=== PATIENT | female | born 1985 | race Caucasian/White ===

== ENCOUNTER 2017-11-06 11:23 | Outpatient (CLI) | payer OTHER, SELFPAY | END 2017-11-06 12:46 | disposition home or self-care (01) | LOC: LABOR 12:21 → OB 11-07 09:25 | PROVIDERS: PCP Family Medicine; Visit Provider Family Medicine | DX: Z03.71 Encounter for suspected problem with amniotic cavity and membrane ruled out (principal); Z3A.36 36 weeks gestation of pregnancy | CPT/HCPCS: 59025; 84112; 87081; G0378; G0379 ==

== ENCOUNTER → 2017-11-06 13:13 | Outpatient (REF) | payer OTHER, SELFPAY | LOC: LAB 13:13 | PROVIDERS: PCP Family Medicine; Visit Provider Family Medicine | DX: Z34.00 Encounter for supervision of normal first pregnancy, unspecified trimester (principal) | CPT/HCPCS: 87081 ==

== ENCOUNTER → 2017-11-26 08:10 | Outpatient (CLI) | payer OTHER, SELFPAY ==
--- NOTE | 2017-11-26 | DI.US.S_ITS ---
PROCEDURE: US OB LIMITED INDICATIONS: Small for gestational age OUTSIDE/PRIOR DATING DATA: Last menstrual period (LMP): Unknown. LMP-based estimated date of delivery (YONI): Unknown. First dating scan (date and location): 04/26/17. Estimated date of delivery (YONI) from first dating scan: 11/30/17. TECHNIQUE: Real-time scanning was performed of the fetus, with image documentation. COMPARISON: [facility], OB COMPLETE 14WKS OR MORE, 07/19/2017, 16:03. [facility], OB COMPLETE LESS THAN 14 WKS, 05/29/2017, 9:32. [facility], OB COMPLETE LESS THAN 14 WKS, 04/26/2017, 9:52. FINDINGS: A single living intrauterine gestation is present. Presentation: Cephalic Placenta: Placental position is anterior, without previa. Amniotic fluid index: 8.4 cm heart rate: 125 beats per minute. Maternal cervical canal: Not definitely seen related to head positioning Biometry: BPD: 9.2 cm, 37 weeks 3 days. HC: 33.6 cm, 30 weeks 3 days. AC.: 33.4 cm, 37 weeks 2 days. FL: 7.3 cm, 37 weeks 1 day Composite gestational age today: 37 weeks 4 days. Estimated gestational weight: 3200 g (24th percentile). IMPRESSION: 1. Single live intrauterine at 37 weeks 4 days (current YONI of 12/13/17) is discordant with the clinical dates by nearly 2 weeks. Please correlate clinically for possible intrauterine growth restriction. 2. Estimated gestational weight is within the 24th percentile. . Dictated by: Joe Arboleda M.D. on 11/26/2017 at 9:00 Approved by: Joe Arboleda M.D. on 11/26/2017 at 9:03
== END ==
PROVIDERS: Family Provider Family Medicine; PCP Family Medicine; Visit Provider Family Medicine
DX: O36.5930 Maternal care for other known or suspected poor fetal growth, third trimester, not applicable or unspecified (principal); Z3A.37 37 weeks gestation of pregnancy
CPT/HCPCS: 76815

== ENCOUNTER 2017-12-04 17:37 | Inpatient (IN) | payer OTHER, SELFPAY ==
[2017-12-04] MEDS: miSOPROStol 25 MCG TABLET VAG ×2 (18:20→22:16)
[2017-12-05] MEDS: OXYTOCIN PREMIX 30 UNIT/500 ML PLAST..BAG IV (08:20)
[2017-12-05] MEDS: LACTATED RINGERS 1,000 ML 100 ML IV ×2 (08:20→16:08)
[2017-12-05 08:52] LABS: Add Manual Diff / Slide Review NO; Basophils Percent Auto 0.2 % (0-2); Eosinophils Percent Auto 1.1 % (2-4); Hematocrit 37.1 % (36-46); Hemoglobin 13.2 g/dL (12.0-16.0); Mean Corpuscular HGB Conc 35.6 % (30-36); Mean Corpuscular Hemoglobin 32.6 PG (26-34); Mean Corpuscular Volume 91.4 fL (80-100); Monocytes Percent Auto 9.1 % (3-14); Neutrophils Absolute Auto 7700 /uL (3000-5900); Neutrophils Percent Auto 72.6 % (50-75); Platelet Count 241 X10^3/uL (150-400); Red Blood Cell Count 4.06 X10^6/uL (4.0-5.2); Red Cell Distribution Width 13.4 % (11.6-14.8); White Blood Cell Count 10.6 X10^3/uL (4.5-11.0)
[2017-12-05 10:32] VITALS: BP 117/76
--- NOTE | 2017-12-05 17:38 | PM.OBPNLAB ---
Date/Time Date Patient Seen: 12/05/17 Time Patient Seen: 13:37 Pain Control Pain control: tolerating well Pelvic Exam Dilation (cm): 2 Effacement (%): 75 station: -1 Amniotic membrane status: Bulging Comments: AROM, clear Contractions Date/Time contractions began: 800am Contractions on admission: irregular Monitor mode: External Pitocin rate (mU/min): 16 Contraction frequency (min): 2 Contraction pattern: Regular Contraction phase: Resting Contraction intensity: Moderate Status status: Category l Heart Rate Baseline: 140 Monitor Accelerations: Present Monitor Decelerations: Absent Monitor Variability: Moderate Assessment and Plan Assessment: induction ongoing Plan: continuous present management Comments: 32-year-old at 40 and 5 7 weeks estimated gestational age here for induction of labor. She received 2 Cytotec last night and now is having good response to Pitocin. She changed from 1 cm to 2 cm from 50% face to 75% effaced and baby has come down from being high to now been negative to 10-1. Reassuring heart tones with category 1 tracing She is Rh negative status post RhoGAM She is GBS negative A rum performed after risks benefits discussed with patient. Clear fluid Epidural if she requests
--- NOTE | 2017-12-05 21:33 | PM.OBPRVD ---
Events: Labor Induction Delivery date: 12/05/17 Intrapartal events: None Induction method: per pitocin protocol Delivery augmentation: rupture of membranes and pitocin Delivery monitor: external FHT Route of delivery: Laceration description: None Anesthesia type: Epidural Narrative: Identifying data meningiomas and is a 32-year-old at 40 and 5 7 weeks estimated gestational age with uncomplicated other than maternal smoking who presents to Labor and delivery for induction of labor due to postdates gestation a previous history of benign 0.5 lb baby. She was given Cytotec x2 on the night prior to delivery and Pitocin was started at approximately 8:00 a.m. on the day of delivery. Stage I: 6 hours 20 min Pitocin was started approximately 8:30 a.m.. There was some cervical change from the prior night. Artificial rupture of membranes was done at 1:49 p.m. which was 7 hr and 7 min prior to delivery. There was clear fluid. Cervix was 2 cm 75% effaced -1 to -2 station. Patient had increasing uterine contractions. Pitocin was max at 16 milliunits. External feel heart monitor and tocometer use. heart tones baseline in the 135-140 range with accelerations and moderate variability but no deceleration making this a category 1 tracing. Contractions were every 2-3 minutes with some coupling. After rupture membranes coupling resolved and MRSA more active labor pattern. Patient requested epidural and this was placed at 4:30 p.m. I gave excellent analgesia. Pitocin was stopped prior to epidural and then restarted after epidural. The patient was noted to be complete at 8:29 p.m.. Stage II lasted 19 min Patient started pushing had effective pushing was able to bring the baby down baby was in RO a presentation. The mom was able to effectively push and the head was delivered without difficulty there was nuchal cord x2 which was easily reduced on the perineum and anterior shoulder delivered then posterior shoulders were delivered and be put on mom's chest. Baby was vigorous at delivery. Apgars were 9 at 1 min and 9 at 5 min. Stage III lasted 2 min The test was run in its since the baby was delivered. 10 mm use of Pitocin was given after delivery of the placenta. 300 cc of blood loss was estimated. Placenta was intact mildly calcified with a three-vessel cord. There is a lateral insertion. There was no perineal or vaginal or cervical lacerations. There were scattered marked periurethral that were not repaired because they were not bleeding and they were not deep. At the time of this dictation both mom and baby are doing excellent. Plan for aftercare: Status post term delivery, normal spontaneous vaginal delivery Routine care Motrin, Percocet as needed pain CBC in a.m.
--- NOTE | 2017-12-05 21:43 | PM.OBHP.1 ---
OB HPI History of Present Illness Chief complaint: EVAL OF LABOR Narrative: Felicita Barrera is a 32 year old female T2 P1 at 40 and 5 7 weeks estimated gestational age here for induction of labor due to postdates gestation. has been uncomplicated other than maternal smoking and 1st and 2nd trimester but she quit in 3rd trimester. GBS negative, Rh negative status post RhoGAM and Tdap and flu shot. Her past medical history is remarkable for anxiety. She takes no medications for this Past Ob history is remarkable for normal spontaneous vaginal delivery of a 9 lb 5 oz male, healthy, no complications, epidural, [place]. Induction at 41-,1/2 weeks care was begun early on with 35 lb weight gain. Good blood pressures. No complications. Serology negative. testing negative Evaluation Evaluation Laboratory results: Laboratory Tests 12/05/17 12/05/17 08:02 08:02 WBC 10.6 RBC 4.06 Hgb 13.2 Hct 37.1 MCV 91.4 MCH 32.6 MCHC 35.6 RDW 13.4 Plt Count 241 Neut % (Auto) 72.6 Lymph % (Auto) 17.0 L [place] % (Auto) 9.1 Eos % (Auto) 1.1 L Baso % (Auto) 0.2 Neut # (Auto) 7700 H Blood Type O Negative Antibody Screen Negative PFSH Social History Smoking Status: Former smoker Meds Home Medications Medication Instructions Recorded Confirmed Type PNV cmb#95-ferrous fumarate-FA 1 tab PO DAILY 12/05/17 12/05/17 History [] Allergies Allergy/AdvReac Type Severity Reaction Status Date / Time No Known Drug Allergies Allergy Verified 12/05/17 10:31 Review of Systems Review of Systems All systems reviewed & are unremarkable except as noted in HPI and below Exam Narrative Exam Narrative: Afebrile vital signs are stable HEENT: Unremarkable Neck: Supple without masses or adenopathy Chest: Clear to auscultation without wheezes rhonchi or crackles Cor: Regular rate and rhythm without murmur Abdomen: Gravid, vertex, estimated weight 7 lb Extremities no edema pulses intact, DTRs are intact Objective Labs Result Diagrams: 12/05/17 08:02 Labs: Laboratory Results - last 24 hr 12/05/17 12/05/17 08:02 08:02 WBC 10.6 RBC 4.06 Hgb 13.2 Hct 37.1 MCV 91.4 MCH 32.6 MCHC 35.6 RDW 13.4 Plt Count 241 Neut % (Auto) 72.6 Lymph % (Auto) 17.0 L [place] % (Auto) 9.1 Eos % (Auto) 1.1 L Baso % (Auto) 0.2 Neut # (Auto) 7700 H Blood Type O Negative Antibody Screen Negative Assessment and Plan Plan: Plan: 32-year-old 1 at 40 and 5 7 weeks estimated gestational age here for post-dates induction Risks benefits discussed with patient and consent signed. cytotec x2 and plan for Pitocin in the a.m. GBS is negative Rh negative, status post program, status post Tdap
--- NOTE | 2017-12-05 21:48 | P.HPOB_ITS ---
OB HPI History of Present Illness Chief complaint: EVAL OF LABOR Narrative: Felicita Barrera is a 32 year old female T2 P1 at 40 and 5 7 weeks estimated gestational age here for induction of labor due to postdates gestation. has been uncomplicated other than maternal smoking and 1st and 2nd trimester but she quit in 3rd trimester. GBS negative, Rh negative status post RhoGAM and Tdap and flu shot. Her past medical history is remarkable for anxiety. She takes no medications for this Past Ob history is remarkable for normal spontaneous vaginal delivery of a 9 lb 5 oz male, healthy, no complications, epidural, [place]. Induction at 41-,1/2 weeks care was begun early on with 35 lb weight gain. Good blood pressures. No complications. Serology negative. testing negative Evaluation Evaluation Laboratory results: Laboratory Tests 12/05/17 12/05/17 08:02 08:02 WBC 10.6 RBC 4.06 Hgb 13.2 Hct 37.1 MCV 91.4 MCH 32.6 MCHC 35.6 RDW 13.4 Plt Count 241 Neut % (Auto) 72.6 Lymph % (Auto) 17.0 L [place] % (Auto) 9.1 Eos % (Auto) 1.1 L Baso % (Auto) 0.2 Neut # (Auto) 7700 H Blood Type O Negative Antibody Screen Negative PFSH Social History Smoking Status: Former smoker Meds Home Medications Medication Instructions Recorded Confirmed Type PNV cmb#95-ferrous fumarate-FA 1 tab PO DAILY 12/05/17 12/05/17 History [] Allergies Allergy/AdvReac Type Severity Reaction Status Date / Time No Known Drug Allergies Allergy Verified 12/05/17 10:31 Review of Systems Review of Systems All systems reviewed & are unremarkable except as noted in HPI and below Exam Narrative Exam Narrative: Afebrile vital signs are stable HEENT: Unremarkable Neck: Supple without masses or adenopathy Chest: Clear to auscultation without wheezes rhonchi or crackles Cor: Regular rate and rhythm without murmur Abdomen: Gravid, vertex, estimated weight 7 lb Extremities no edema pulses intact, DTRs are intact Objective Labs Result Diagrams: 12/05/17 08:02 Labs: Laboratory Results - last 24 hr 12/05/17 12/05/17 08:02 08:02 WBC 10.6 RBC 4.06 Hgb 13.2 Hct 37.1 MCV 91.4 MCH 32.6 MCHC 35.6 RDW 13.4 Plt Count 241 Neut % (Auto) 72.6 Lymph % (Auto) 17.0 L [place] % (Auto) 9.1 Eos % (Auto) 1.1 L Baso % (Auto) 0.2 Neut # (Auto) 7700 H Blood Type O Negative Antibody Screen Negative Assessment and Plan Plan: Plan: 32-year-old 1 at 40 and 5 7 weeks estimated gestational age here for post- dates induction Risks benefits discussed with patient and consent signed. cytotec x2 and plan for Pitocin in the a.m. GBS is negative Rh negative, status post program, status post Tdap
[2017-12-06] MEDS: IBUPROFEN 600 MG TABLET PO ×3 (01:14→15:50)
[2017-12-06 06:56] LABS: Add Manual Diff / Slide Review NO; Basophils Percent Auto 0.1 % (0-2); Eosinophils Percent Auto 0.5 % (2-4); Hematocrit 33.4 % (36-46); Hemoglobin 11.7 g/dL (12.0-16.0); Lymphocytes Percent Auto 13.9 % (25-40); Mean Corpuscular HGB Conc 35.2 % (30-36); Mean Corpuscular Hemoglobin 32.3 PG (26-34); Mean Corpuscular Volume 91.7 fL (80-100); Monocytes Percent Auto 10.3 % (3-14); Neutrophils Absolute Auto 10700 /uL (3000-5900); Neutrophils Percent Auto 75.2 % (50-75); Platelet Count 217 X10^3/uL (150-400); Red Blood Cell Count 3.64 X10^6/uL (4.0-5.2); Red Cell Distribution Width 13.2 % (11.6-14.8); White Blood Cell Count 14.2 X10^3/uL (4.5-11.0)
[2017-12-06] MEDS: DERMOPLAST SPRAY 20% 60 ML 1 SPRAY TOP (08:24)
[2017-12-06] MEDS: DOCUSATE 250 MG CAPSULE PO (09:17)
[2017-12-06] MEDS: RHO(D) IMMUNE GLOBULIN 1,500 UNIT SYRINGE 1500 UNIT IM (12:08)
[2017-12-06] MEDS: ACETAMINOPHEN 325 MG TABLET 650 MG PO (12:21)
--- NOTE | 2017-12-06 13:04 | PM.DS.1 ---
History of Present Illness Date Patient Seen: 12/06/17 Time Patient Seen: 13:04 Chief complaint: EVAL OF LABOR Narrative: See history and physical. Presented for induction. Delivered Discharge Providers Date of admission: 12/04/17 17:37 Primary care physician: Pricilla Drake MD Consults: 12/05/17 08:02 Consult to Anesthesiology Urgent Comment: Consulting Provider: Navi Muhammad Reason For Exam: Preoperative evaluation Reason for consultation: Induction of Labor Has provider been notified: Yes 12/05/17 21:30 Consult to Bee Raiser Routine Comment: Discharge provider: Oni Valle MD Summary Discharge Diagnosis: Term intrauterine delivered by vaginal delivery Hospital Course: Patient was admitted after delivery. Transferred to recovery room after 4 hr. Was doing well. Breast-feeding was going well. Feeling well. Minimal bleeding. Pain was well controlled with ibuprofen and Tylenol. Requesting to go home. After 24 hr near she was discharged to home. Stable condition. Status at Discharge Cognitive/behavioral status at discharge: Stable Overall status at discharge: patient is progressing back to baseline Exam Narrative Exam Narrative: Alert female in no acute distress Lungs are clear. Heart regular rate and rhythm. Abdomen is soft positive bowel sounds [place] is firm. Extremities normal. Objective Labs Result Diagrams: 12/06/17 06:15 Labs: Laboratory Results - last 24 hr 12/06/17 12/06/17 06:15 06:15 WBC 14.2 H RBC 3.64 L Hgb 11.7 L Hct 33.4 L MCV 91.7 MCH 32.3 MCHC 35.2 RDW 13.2 Plt Count 217 Neut % (Auto) 75.2 H Lymph % (Auto) 13.9 L [place] % (Auto) 10.3 Eos % (Auto) 0.5 L Baso % (Auto) 0.1 Neut # (Auto) 15646 H Maternal Bleed Negative Discharge Plan Discharge Plan Patient Disposition: Home, Self-Care Discharge Med Rec/Prescriptions Prescriptions: New ibuprofen 600 mg Tablet 600 mg PO Q6HR PRN (Reason: Pain, Mild (1-3)) Qty: 90 RF: 1 docusate sodium 250 mg Capsule 250 mg PO DAILY Qty: 60 RF: 1 Continue PNV cmb#95-ferrous fumarate-FA [] 28 mg iron- 800 mcg Tablet 1 tab PO DAILY RF: 0 Follow up/Referrals: Pricilla Drake MD [Primary Care Provider] - 6 Weeks (six weeks) Provider Discharge Instructions Diet: Diet as Tolerated Activity: as tolerated no intercourse Discharge Data Primary Care Provider: Pricilla Drake Attending Provider: Pricilla Drake Admit Date/Time: 12/04/17 17:37
--- NOTE | 2017-12-06 13:08 | P.DS_ITS ---
History of Present Illness Date Patient Seen: 12/06/17 Time Patient Seen: 13:04 Chief complaint: EVAL OF LABOR Narrative: See history and physical. Presented for induction. Delivered Discharge Providers Date of admission: 12/04/17 17:37 Primary care physician: Pricilla Drake MD Consults: 12/05/17 08:02 Consult to Anesthesiology Urgent Comment: Consulting Provider: Navi Muhammad Reason For Exam: Preoperative evaluation Reason for consultation: Induction of Labor Has provider been notified: Yes 12/05/17 21:30 Consult to Auto Radiator Specialist Routine Comment: Discharge provider: Oni Valle MD Summary Discharge Diagnosis: Term intrauterine delivered by vaginal delivery Hospital Course: Patient was admitted after delivery. Transferred to recovery room after 4 hr. Was doing well. Breast-feeding was going well. Feeling well. Minimal bleeding. Pain was well controlled with ibuprofen and Tylenol. Requesting to go home. After 24 hr near she was discharged to home. Stable condition. Status at Discharge Cognitive/behavioral status at discharge: Stable Overall status at discharge: patient is progressing back to baseline Exam Narrative Exam Narrative: Alert female in no acute distress Lungs are clear. Heart regular rate and rhythm. Abdomen is soft positive bowel sounds [place] is firm. Extremities normal. Objective Labs Result Diagrams: 12/06/17 06:15 Labs: Laboratory Results - last 24 hr 12/06/17 12/06/17 06:15 06:15 WBC 14.2 H RBC 3.64 L Hgb 11.7 L Hct 33.4 L MCV 91.7 MCH 32.3 MCHC 35.2 RDW 13.2 Plt Count 217 Neut % (Auto) 75.2 H Lymph % (Auto) 13.9 L [place] % (Auto) 10.3 Eos % (Auto) 0.5 L Baso % (Auto) 0.1 Neut # (Auto) 14181 H Maternal Bleed Negative Discharge Plan Discharge Plan Patient Disposition: Home, Self-Care Discharge Med Rec/Prescriptions Prescriptions: New ibuprofen 600 mg Tablet 600 mg PO Q6HR PRN (Reason: Pain, Mild (1-3)) Qty: 90 RF: 1 docusate sodium 250 mg Capsule 250 mg PO DAILY Qty: 60 RF: 1 Continue PNV cmb#95-ferrous fumarate-FA [] 28 mg iron- 800 mcg Tablet 1 tab PO DAILY RF: 0 Follow up/Referrals: Pricilla Drake MD [Primary Care Provider] - 6 Weeks (six weeks) Provider Discharge Instructions Diet: Diet as Tolerated Activity: as tolerated no intercourse Discharge Data Primary Care Provider: Pricilla Drake Attending Provider: Pricilla Drake Admit Date/Time: 12/04/17 17:37
== END 2017-12-06 18:15 | disposition home or self-care (01) | DRG 775 ==
PROVIDERS: Admitting Provider Family Medicine; Family Provider Family Medicine; PCP Family Medicine; Visit Provider Family Medicine
DX: O48.0 Post-term pregnancy (principal); Z37.0 Single live birth; Z3A.40 40 weeks gestation of pregnancy; O69.81X0 Labor and delivery complicated by cord around neck, without compression, not applicable or unspecified
CPT/HCPCS: 01967; 36415; 59050; 59200; 76815; 85025; 85461; 86850; 86900; 86901; G0379; J2590; J2790; J3010

== ENCOUNTER → 2018-02-20 07:05 | Outpatient (CLI) | payer OTHER, SELFPAY ==
--- NOTE | 2018-02-20 | DI.US.S_ITS ---
PROCEDURE: US ABDOMEN COMPLETE INDICATIONS: PAIN AND VOMITING TECHNIQUE: Real-time scanning was performed of the abdominal and retroperitoneal organs, with image documentation. COMPARISON: None. FINDINGS: Liver: Liver is normal in size and homogeneous in echotexture. Gallbladder: No gallstones identified. Normal gallbladder wall. No pericholecystic fluid. Negative sonographic Gonzalez sign. Biliary ducts: Intrahepatic bile ducts are non-dilated. Extrahepatic bile duct caliber measures 3.6 mm. Normal is 6-7 mm or less in diameter, or 10 mm or less post-cholecystectomy. Pancreas: Visualized portions of the pancreas are sonographically normal. Spleen: Spleen is normal in size and homogeneous in echotexture. Kidneys: Kidneys are normal in size and echotexture. Right kidney measures 11.4 cm long; left kidney measures 10.2 cm long. No hydronephrosis or nephrolithiasis. No solid masses. Aorta: Visualized aorta is normal in caliber at less than 3 cm. Iliacs: Proximal common iliac arteries are normal in caliber at less than 2.5 cm. IVC: Intrahepatic inferior vena cava is patent. Miscellaneous: No free abdominal fluid. IMPRESSION: No source for abdominal pain and vomiting identified. Dictated by: Charan BREEN Interpreted: Villa Franco MD on 02/20/2018 at 8:24 Approved by: Villa Franco M.D. on 02/20/2018 at 11:26
== END ==
PROVIDERS: Family Provider Family Medicine; PCP Family Medicine; Visit Provider Family Medicine
DX: R10.9 Unspecified abdominal pain (principal); R11.10 Vomiting, unspecified
CPT/HCPCS: 76700